=== PATIENT | female | born 1995 | race Caucasian/White ===

== ENCOUNTER 2024-10-24 02:46 | Day surgery (SDC) | payer OTHER, SELFPAY ==
[2024-10-11 09:07] VITALS: BMI 25.1
--- NOTE | 2024-10-11 09:13 | PC.NURSE ---
Report to the Outpatient Waiting Room, entrance under the green pavilion located off [facility], at time 0930 on date 10/24/24. Planned Procedure Time: 1130.? Time changes happen often and if your time is changed the preop area will call you the afternoon before. - You and your visitor will be asked to self-screen and do not enter if you have any COVID symptoms. Please call surgeon if you need to reschedule. - A mask is optional within the hospital at this time. Patients may have clear liquids (water, carbonated beverages, clear teas, apple juice) until 3 hours prior to surgery with a maximum of 20 ounces. - No food from midnight until time of surgery and no smoking, or chewing tobacco (or any form of nicotine). No chewing gum, candy or mints. - Infants may have breast milk until 4 hours before surgery, formula 6 hours prior to surgery. - Children will be allowed to drink immediately following surgery.? If applicable, please bring a bottle or sippy cup to assist with drinking. Juice, water, soda, and popsicles are readily available.? For infants on formula, please bring formula the day of surgery.? Pacifiers are allowed. Take only the following medications with a SIP of water on the morning of surgery: Citalopram DO NOT STOP ANY OF YOUR OTHER PRESCRIPTION MEDICATIONS PRIOR TO SURGERY EXCEPT THE FOLLOWING Hold all vitamins and supplements for 3 days per anesthesiologist. Medications to discontinue per physician: supplements and vitamins 3 days prior, zyrtec day of surgery, pt stated needs to eat with atomoxetine and will not take morning of surgery. Date to take last dose Please no make-up, nail [place], hairspray, perfume, deodorant, or body powder the day of surgery.? No jewelry (including any body piercings) or valuables the day of surgery, leave them at home.? Please take a shower or bath the night before, or the morning of, surgery with an antibacterial soap.? Wear comfortable, loose fitting clothing.? Children are encouraged to wear pajamas. - Jewelry must be removed prior to entering the operating room.? Rings and piercings that are not removed may be cut off. - The hospital will not accept responsibility for valuables.? - Please leave all valuables, including medications, at home the day of surgery. If you are going home after surgery, a licensed stud driver must drive you home.? - NO public transportation without another adult if you receive anesthesia. - We recommend that an adult stay with you for 24 hours following discharge. - We also recommend that you do not drive, make important decision, drink alcoholic beverages, or take any drugs that were not prescribed by your health care provider for at least 24 hours after your discharge time. For Pediatric surgeries, we recommend two adults accompany the child home. Follow any additional instructions given to you from your surgeon. Telephone instructions given to patient and asked if any additional questions and then verbalized understanding. Patient advised to call surgeon office or pre surgery nurse liaison [phone] if any additional questions.
[2024-10-24] VITALS (9 sets, daily range): BP systolic 101–121; BP diastolic 58–77; PULSE 66–97; RESP 11–17; TEMP 36.6–36.8; O2SAT 98–100
--- OUTSIDE RECORDS SUMMARY | 2024-10-24 02:49 | XMS_ITS | Clinical Summary ---
Author Organization [facility] Address [address] [place] [phone] Phone Care Team Providers Care Harness Repairer Name Role Phone Provider, None Primary Care Provider Unavailabl e Allergies Active Allergy Reactions Criticality Noted Date Comments Amoxicillin Anaphylaxis High 09/21/2017 Medications azelastine (ASTELIN) 0.1 % SolutionIndicat ions:Bronchitis ,Otitis media with effusion, bilateral 2 Sprays by Nasal route 2 times daily. Use in each nostril as directed 1 Bottle 3 05/25/2018 Active Norgestim-Eth Estrad Triphasic ([id number]-[id number] C PO) Take by mouth. Active gabapentin (NEURONTIN) 100 MG Capsule TAKE 1 TO 2 CAPSULES BY MOUTH ONCE DAILY AT BEDTIME FOR 30 DAYS 04/19/2023 Active Atomoxetine HCl 80 MG Capsule TAKE 1 CAPSULE BY MOUTH ONCE DAILY IN THE MORNING 03/01/2023 Active VITAMIN D PO Take by mouth daily. Active MAGNESIUM PO Take by mouth daily. Active ASHWAGANDHA PO Take by mouth daily. Active Active Problems Problem Noted Date Diagnosed Date Pharyngitis 05/18/2018 Family History Medical History Relation Name Comments No Known Problems Father No Known Problems Mother Relation Name Status Comments Father Alive Mother Alive Social History Tobacco Use Types Packs/Day Years Used Date Smoking Tobacco: Never Smokeless Tobacco: Never Tobacco Cessation:Counseling Given: Not Answered Alcohol Use Standard Drinks/Week Comments No 0 (1 standard drink = 0.6 oz pur e alcohol) Sexually Active Control Partners Comments Yes Oral Contraceptive Male Comments No Sex and Gender Information Value Date Recorded Sex Assigned at Not on file Legal Sex Female 7:24 PM CDT Gender Identity Not on file Sexual Orientation Not on file Last Filed Vital Signs Vital Sign Reading Time Taken Comments Blood Pressure 100/66 07/23/2024 8:19 AM CDT Pulse 89 07/23/2024 8:19 AM CDT Temperature 36.4 C (97.5 F) 07/23/2024 8:19 AM CDT Respiratory Rate 15 07/23/2024 8:19 AM CDT Oxygen Saturation 99% 07/23/2024 8:19 AM CDT Inhaled Oxygen Concentration - - Weight 61.2 kg (135 lb) 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 160 cm (5' 3) 11/30/2018 5:57 PM CDT Body Mass Index 23.91 11/30/2018 5:57 PM CDT Plan of Treatment Health Maintenance Due Date Last Done Comments Hepatitis C Virus (HCV) Screening 1993 Pap Smear 2014 Cervical Cancer Screening (CCS) 2023 HPV/Cotest 2023 SARS-COV-2 Immunization ( season) 2023 Influenza Immunization (#1) 2024 01/31/2019 Respiratory Syncytial Virus (RSV) Immunization (Adult) (1 - 1-dose 75+ series) 2068 Hepatitis B Immunization Completed 994, 1993, 1993 Meningococcal Immunization (ACWY) Aged Out 10/06/2007 No longer eligible based on patient's age to complete this topic Human Papillomavirus (HPV) Immunization Completed 04/29/2008, 12/27/2007, 10/06/2007 DTaP/Tdap/Td Immunization Discontinued 2016, 10/18/2005, 07/19/1998, Additional history exists TdaP Immunization Completed 11/19/2016, 10/18/2005 Pneumococcal Immunization Combined Aged Out No longer eligible based on patient's age to complete this topic Rotavirus Immunization Aged Out No lo nger eligible based on patient's age to complete this topic [place] [place] [address] Care Teams Harness Repairer Relationship Specialty Start Date End Date Provider, None [place] PCP - General Physical Therapy 09/21/17
--- NOTE | 2024-10-24 10:21 | P.PNAN_ITS ---
Anes - Initial Pre Proc Eval Procedure: Operation Date: 10/24/24 11:30 Proposed Procedures p Laparoscopic Bilateral Salpingectomy - Dereck Bucio MD Date/Time: 10/24/24 10:21 Surgeon: Dereck Bucio MD Pre Op Diagnosis: desires sterilization Patient Data Age: 29 Gender: F Height: 1.6 m Weight: 64.41 kg Allergies Allergy/AdvReac Type Severity Reaction Status Date / Time amoxicillin Allergy Severe Anaphylaxis Verified 10/11/24 09:05 Penicillins Allergy Severe Anaphylaxis Verified 10/11/24 09:05 Home Medications ?Medication ?Instructions ?Recorded ?Confirmed ?Type atomoxetine 80 mg capsule 80 mg PO DAILY 07/09/24 10/11/24 History cetirizine 10 mg tablet (Zyrtec) 10 mg PO DAILY PRN allergy symptoms 07/09/24 10/11/24 History citalopram 20 mg tablet 20 mg PO DAILY 07/09/24 10/11/24 History gabapentin 300 mg capsule 300 mg PO DAILY 09/04/24 10/11/24 History multivitamin (Daily Multi-Vitamin 1 tablet PO DAILY 10/11/24 10/11/24 History tablet) Patient hx anesthesia problems: none Family hx anesthesia problems: other (Reports that her family members are sensitive to GA. ) Results Review: All pre-operative results and documents have been reviewed as part of the pre- operative evaluation. [facility] Past Medical History Medical History GERD (gastroesophageal reflux disease) Anxiety Anemia Allergies Family History Family History Mother Alcohol abuse Depression Hypertension Father Alcohol abuse Social History Social History Smoking status: Never smoker Alcohol intake: never Substance use: current Substance use type: unknown Do You Feel Safe in your Home?: Yes Anes - Eval Final PreProcedure Day of Procedure 10/24/24 10:21 Patient weight: normal Lungs: normal air movement Airway: Mallampati scale class II Neurological: alert and oriented Last oral intake: >/= 8 hours ASA classification: II Emergent: no Anesthetic plan: proceed Anesthesia type and monitoring: general ETT and standard monitoring Results Review: All pre-operative results and documents have been reviewed as part of the pre- operative evaluation. Cannabis use daily. Informed Consent: The patient's anesthetic plan and its attendant risks and benefits were discussed with the patient/family/POA. Questions were solicited and answers provided to the satisfaction of the patient/family/POA.
[2024-10-24] MEDS: KETOROLAC 15 MG/ML VIAL (*BKC) IV PUSH (10:26)
[2024-10-24] MEDS: ACETAMINOPHEN 500 MG TABLET 1000 MG PO (10:26)
[2024-10-24 10:33] LABS: BEDSIDEPREGUCG Negative (Negative)
[2024-10-24] MEDS: SCOPOLAMINE 1 MG PATCH 1 PATCH TRANSDERM (10:35)
[2024-10-24] MEDS: LACTATED RINGERS 1,000 ML 30 ML IV CONT ×2 (10:36→12:01)
--- NOTE | 2024-10-24 10:55 | WPDHPUPDATE1 ---
History and Physical Update Update Date/Time: 10/24/24 10:55 History and Physical has been reviewed, including an updated exam of the patient. There are NO changes in the patient's condition. Risks, benefits, and alternatives have been discussed and questions answered. Patient agrees to proceed with procedure.
--- NOTE | 2024-10-24 11:35 | S_PTH ---
PATIENT: Agueda Moody LOC: [facility] U#:[id number] AGE/SX: 29/F ROOM: RE10/24/[address]: Dereck Bucio MD : 1995 BED: DIS: 10/24/2024 SPEC #: [id number] RECD: 10/24/24 13:37 STATUS: ARYAN REQ #: [id number] ANDREA: 10/24/24 11:[address]: Dereck Bucio DEPT: [facility] Surgical RECD BY: Philomena Preston ENTERED: 10/24/24 13:37 SP TYPE: Surgical OTHR DR: UNKNOWN,DOCTOR Tissues: A - Fallopian Tube Bilateral Procedures: Gross and Microscopic Level 2 Hematoxylin and Eosin Stain
--- NOTE | 2024-10-24 12:02 | W.PM.PROC2 ---
Procedure Note - Detailed Date of Procedure 10/24/24 Pre-op Diagnosis desires sterilization Post-op Diagnosis Same Procedure Performed Laparoscopic bilateral salpingectomy Surgeon Dereck Bucio MD Anesthesia General Indications undesired fertility desires permanent sterilization Findings normal uterus and fallopian tubes and ovaries bilateral normal pelvis. Description of Procedure After informed consent was obtained patient was taken to the operating room and general endotracheal anesthesia was administered. She was placed in low lithotomy need prep prepped sterile fashion. Bladder emptied of 100 cc of yellow urine with straight catheter. Attention was turned to the vagina speculum inserted single-tooth tenaculum placed on anterior lip of the cervix. [place] uterine manipulator placed into the cervical canal. The speculum was removed. Attention was then turned to the abdomen. A Veress needle was inserted into the abdomen confirmation into the abdomen obtained with free flow of fluid and normal peritoneal pressures. A pneumoperitoneum of 15 mm per mercury was obtained. The 5 mm port was inserted under laparoscopic visualization. Patient was placed in Trendelenburg position. Attention was turned to the left side of the abdomen and a 5 mm port was inserted under laparoscopic visualization. The pelvic organs were visualized. Using the LigaSure the right fallopian tube was excised to near the entrance to the uterus. This was removed through the port. Attention was then turned to the left fallopian tube which was grabbed at the distal end and cauterized from the mesial salpinx to within neat the to the uterus. The fallopian tube was removed through the 5 mm port. Hemostasis was noted at both sites. Patient was taken out of Trendelenburg position the pneumoperitoneum was released and the skin incisions were closed in a subcuticular fashion with 4 O Vicryl. Estimated Blood Loss 5 Drains No Packing No Pathology Yes ( Right and left fallopian tube) Complications No immediate complications Condition Stable Disposition PACU [facility] Billing Surgery - Charge Forward: Surgery Billing
[2024-10-24] MEDS: fentaNYL CITRATE INJ (*CRX) 100 MCG/2 ML VIAL 25 MCG IV PUSH (12:27)
[2024-10-24] MEDS: ONDANSETRON INJ 4 MG/2 ML VIAL IV PUSH (13:01)
[2024-10-24] MEDS: oxyCODONE HCL (*CRX) 5 MG TAB IR PO (13:19)
== END 2024-10-24 14:00 | disposition home or self-care (01) ==
PROVIDERS: Visit Provider Obstetrics & Gynecology
PROC: (CPT 49320; principal; 2024-10-24 11:30)
DX: Z30.2 Encounter for sterilization (principal)
CPT/HCPCS: 58661; 88302; A9270; J1100; J1885; J2003; J2250; J2405; J2704; J3010; J7120

== ENCOUNTER 2024-11-20 13:54 | Outpatient (CLI) | payer OTHER, SELFPAY ==
--- OUTSIDE RECORDS SUMMARY | 2024-11-20 14:20 | XMS_ITS | Clinical Summary ---
Author Organization [facility] Address [address] [place] [phone] Phone Care Team Providers Care Brush Fabrication Supervisor Name Role Phone Provider, None Primary Care Provider Unavailabl e Allergies Active Allergy Reactions Criticality Noted Date Comments Amoxicillin Anaphylaxis High 09/21/2017 Medications azelastine (ASTELIN) 0.1 % SolutionIndicat ions:Bronchitis ,Otitis media with effusion, bilateral 2 Sprays by Nasal route 2 times daily. Use in each nostril as directed 1 Bottle 3 05/25/2018 Active Norgestim-Eth Estrad Triphasic ([id number] C PO) Take by mouth. 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
[2024-11-20 15:30] LABS: Beta HCG Quantitative > 15000.00 mIU/ML
== END 2024-11-20 13:55 | disposition home or self-care (01) ==
LOC: ANHLAB 13:56
PROVIDERS: Visit Provider Obstetrics & Gynecology
DX: N92.6 Irregular menstruation, unspecified (principal)
CPT/HCPCS: 36415; 84702